=== PATIENT | male | born 1955 | race Caucasian/White ===

== ENCOUNTER → 2020-06-23 | Outpatient (CLI) | payer MEDICARE ==
--- NOTE | 2020-06-23 09:55 | KCIC ---
Examination: MRI of the right shoulder without contrast HISTORY: History of right shoulder pain decreased range of motion COMPARISON: None available TECHNIQUE: Multiplanar, multisequence MR images of the right shoulder without contrast. FINDINGS: The long head of the biceps tendon within the bicipital groove. The attachment of the long head the b iceps tendon to the superior labral anchor grossly appears intact. Moderate increased T2 signal ident ified in the subscapularis, supraspinatus, infraspinatus tendon likely moderate tendinosis. There is full-thickness tear of the supraspinatus tendon with tendon retraction measuring 2.6 cm with extension of fluid into subacromial subdeltoid bursa. There is diffuse increased signal identified throughout the labrum likely degenerative changes. There is mild obscuration of fat in the rotator interval. Acromion is type II. Moderate degenerative ponce es acromioclavicular joint, glenohumeral joint. IMPRESSION: 1. Full-thickness tear of the supraspinatus tendon with tendon retraction measuring 2.6 cm. 2. Moderate rotator cuff tendinosis. 3. Mild obscuration of fat in the rotator interval. Correlate for adhesive capsulitis. Electronically signed by: Dustin Guzman MD (06/23/2020 9:53 AM) [id number]
== END ==
LOC: KCIC MRI 08:32
PROVIDERS: ATTEND Physician Assistant Medical
DX: M19.011 Primary osteoarthritis, right shoulder (principal); M75.101 Unspecified rotator cuff tear or rupture of right shoulder, not specified as traumatic
CPT/HCPCS: 73221

== ENCOUNTER 2021-01-19 10:56 | Day surgery (SDC) | payer MEDICARE ==
[~2021-01-19] VITALS: Ht 185.4 cm; Wt 100.0 kg
[~2021-01-19 10:56] MED LIST: HYDROmorphone 2 MG/ML VIAL IVP PRN; MORPHINE SULFATE 2 MG/ML INJ. IVP PRN; PROCHLORPERAZINE 10 MG/2 ML VIAL. IVP PRN; fentaNYL PF VIAL 100 MCG/2 ML VIAL IVP PRN
[2021-01-19] MEDS ORDERED: IBUP200T58 PO (11:14)
[2021-01-19 11:24] VITALS: BP 146/75
[2021-01-19] MEDS: IV RINGERS,LACTATED 1000ML 1,000 ML IV SCH ×2 (11:32→15:11)
[2021-01-19] MEDS ORDERED: MIDAZOLAM HCL/PF 2 MG/2 ML VIAL. ONE (12:14)
[2021-01-19] MEDS ORDERED: DEXAMETHASONE SOD PHOS 4 MG/ML VIAL ONE ×2 (12:14→12:55)
[2021-01-19] MEDS ORDERED: LIDOCAINE 1% PF 5 ML VIAL. ONE (12:14)
[2021-01-19] MEDS ORDERED: ROPIVacaine 0.5% PF 20 ML VIAL. ONE (12:20)
[2021-01-19] MEDS ORDERED: ONDANSETRON PF 4 MG/2 ML VIAL. ONE (12:55)
[2021-01-19] MEDS ORDERED: PROPOFOL 10 MG/ML (20ML) VIAL. IV ONE (12:55)
[2021-01-19] MEDS ORDERED: ROCURONIUM 50 MG/5 ML VIAL. ONE (12:55)
[2021-01-19] MEDS ORDERED: KETOROLAC 30 MG/ML VIAL. ONE (13:57)
[2021-01-19] MEDS ORDERED: GLYCOPYRROLATE 1 MG/5 ML VIAL. ONE (13:57)
[2021-01-19] MEDS ORDERED: NEOSTIGMINE METHYLSULFATE 5 MG/5 ML SYRINGE. ONE (13:58)
--- NOTE | 2021-01-19 14:45 | PDOC4 ---
OPERATIVE NOTE Date: Date: Jan 19, 2021 Pre-Op Diagnosis: Impingement with AC arthrosis rotator cuff tear with partial bicep tear right shoulder Post-Op Diagnosis: Same Procedure Performed: Right shoulder arthroscopy with arthroscopic subacromial decompression distal clavicle resection mini open rotator cuff repair and biceps tenodesis Surgeon: Sheela Anesthesia Type: General Blood Loss: 30 cc Specimans Obtained: None Findings: See dictation Complications: None DEV MCADAMS Jr. DO Jan 19, 2021 14:45
--- NOTE | 2021-01-19 15:04 | OP ---
DATE OF SURGERY: 01/19/2021 PREOPERATIVE DIAGNOSIS: Rotator cuff tear with partial biceps tear, right shoulder post-impingement and acromioclavicular arthrosis. POSTOPERATIVE DIAGNOSIS: Rotator cuff tear with partial biceps tear, right shoulder post-impingement and acromioclavicular arthrosis. PROCEDURE: Right shoulder arthroscopy with subacromial decompression, distal clavicle resection, mini open rotator cuff repair with an open biceps tenodesis. SURGEON: Mc Coker DO LIABILITY CLAIMS ADJUSTER: Gumaro Perez MD ANESTHESIA: General. COMPLICATIONS: None. ESTIMATED BLOOD LOSS: 30 mL DESCRIPTION OF PROCEDURE: The patient was taken to the operative suite, given a general anesthetic, placed in a beach chair position. Bony prominences were well padded. Head was affixed to the head rest. Right shoulder was then prepped and draped in a sterile fashion. A standard posterior portal was established. The glenohumeral joint was visualized. There was noted to be no significant degenerative changes on the glenoid or humeral side of the joint. The labral tissue was completely intact; however tearing began on the bicep approximately 1.5 cm before the insertion. Following this, the fraying of the tendon continued into the top portion of the bicipital groove. Rotator cuff was also noted to be torn and retracted all the way back to the mid portion of the humeral head with the subscapularis intact. The subacromial region was noted to have very large osteophytes at the AC joint as well as anteriorly. Therefore, after release of the CA ligament subacromial decompression was performed and the anterior portal was redirected into the AC joint region and the bur resected the osteophytes inferiorly. Also, a portion of the distal clavicle decompressed this region. This was then thoroughly irrigated and suctioned dry. Before this was opened a mini open incision was made to incorporate the lateral portal. This was through skin and subcutaneous tissues and the deltoid fascia, which was dissected out and retracted appropriately. After externally rotating the shoulder the bicep was then noted within the bicipital groove. A small longitudinal incision was made along this area. It was identified that the area just proximal to that was torn distally. It looked very good. Therefore, using a suture this was placed through this portion of the tendon and then this was cut as proximal as possible. Following this, the punch was used to the bicipital groove and then the SwiveLock was placed capturing this and placed this in appropriate position at this point. This had excellent secure fixation. Following this, the attention was directed to the rotator cuff. This could not be completely restored due to the amount of retraction. However, after careful and sliding techniques this was brought back to recover approximately 85% of the cuff down towards the subscapularis. At this point; however, this was repaired onto a bed, which was noted to be along the area of the insertion site originally. Two suture anchors followed by 2 SwiveLocks were used to appropriately secure this into position. This actually had very good positioning at this point. The wound was then thoroughly irrigated. Then, the deltoid fascia was reapproximated. Superficial tissues and skin was reapproximated. Local was placed. Sterile dressing was applied. The patient was then taken from the operative bed to the postoperative bed, taken to the PACU in stable condition. TARIK DR: Tammy TID: [id number]
[2021-01-19 15:55] VITALS: BP 160/83
[2021-01-19] MEDS ORDERED: HYDR-2759 PO (16:20)
--- NOTE | 2021-01-19 16:22 | DISCH ---
DISCHARGE INSTRUCTIONS Condition on Discharge Condition on Discharge: Stable Activity After Discharge Activity Instructions for Disc: Avoid exertion Driving Instructions after Dis: Do not drive today Wound Incision Care Wound/Incision Care: Ice to area for comfort, Change dressing Other wound/incision instructi: May change dressing postoperative day #3 Follow-Up Follow up with: 10 to 14 days Treatment/Equipment after DC Comment: Keep immobilizer on at all times no use right uppe DEV MCADAMS Jr. DO Jan 19, 2021 16:22
[2021-01-19] MEDS ORDERED: oxyCODONE/APAP 5/325 1 TAB TABLET PO ONE (16:30)
== END 2021-01-19 16:36 | disposition home or self-care (01) ==
LOC: SURG 10:56
PROVIDERS: ATTEND Orthopaedic Surgery
DX: S46.211A Strain of muscle, fascia and tendon of other parts of biceps, right arm, initial encounter (principal); M19.011 Primary osteoarthritis, right shoulder; M75.101 Unspecified rotator cuff tear or rupture of right shoulder, not specified as traumatic; Z79.899 Other long term (current) drug therapy; Z98.890 Other specified postprocedural states; X58.XXXA Exposure to other specified factors, initial encounter; Y93.89 Activity, other specified; Y92.89 Other specified places as the place of occurrence of the external cause; Y99.8 Other external cause status
CPT/HCPCS: 29824; 29826; 29827; 29828; J0690; J1100; J1885; J2250; J2405; J2704; J2710; J2795; J3490; A4452; A4928; A4930; C1713